=== PATIENT | female | born 1985 | race American Indian/Alaskan Native ===

== ENCOUNTER 2017-08-13 07:40 | Emergency (ER) | payer SELFPAY ==
[2017-08-13 08:26] LABS: Bacteria,Urine 1+ /HPF (Negative); Bilirubin,Urine NEG (Negative); Blood,Urine NEG (Negative); Color,Urine Yellow (Yellow); Mucus,Urine FEW /HPF; Protein,Urine <15 mg/dL mg/dL (Negative); Urobilinogen,Urine < 2.0 mg/dL (<2.0)
[2017-08-13 08:30] LABS: HCG Qualitative,Urine Negative (Negative)
[2017-08-13 08:32] LABS: Alanine Aminotransferase 11 units/L (7-56); Albumin 4.4 g/dL (3.9-5); BUN/Creatinine Ratio 9; Blood Urea Nitrogen 7 mg/dL (7-17); Calcium 9.6 mg/dL (8.4-10.2); Hemolysis Index 5
[2017-08-13 08:40] LABS: Basophils % (Auto) 0.3 % (0.0-1.8); Eosinophils % (Auto) 0.2 % (0.0-4.3); Hematocrit 39.4 % (30.3-42.9); Hemoglobin 13.2 gm/dl (10.1-14.3); Lymphocytes # (Auto) 2.2 K/mm3 (1.2-5.4); Lymphocytes % (Auto) 22.5 % (13.4-35.0); Mean Corpuscular HGB Conc 34 % (30-34); Mean Corpuscular Hemoglobin 31 pg (28-32); Mean Corpuscular Volume 93 fl (79-97); Monocytes # (Auto) 0.6 K/mm3 (0.0-0.8); Monocytes % (Auto) 6.6 % (0.0-7.3); Platelet Count 272 K/mm3 (140-440); Red Blood Count 4.22 M/mm3 (3.65-5.03); Red Cell Distribution Width 12.2 % (13.2-15.2)
[2017-08-13] MEDS ORDERED: ZOFRAN IV ONE ×2 (11:27→13:05)
[2017-08-13] MEDS ORDERED: MORPHINE IV ONE (11:27)
[2017-08-13] MEDS ORDERED: NACL ONE (11:31)
[2017-08-13] MEDS ORDERED: DILAUDID IV ONE (13:05)
--- NOTE | 2017-08-13 14:59 | Cat Scan Report ---
FINAL REPORT EXAM: CT ABDOMEN PELVIS W CON HISTORY: right lower quadrant pain, with nausea TECHNIQUE: CT abdomen and pelvis performed. Images extend from diaphragm to pubic symphysis. 100 cc Omnipaque 300 IV was administered. Oral contrast was administered. Coronal and sagittal reformatted images were obtained. PRIORS: None. FINDINGS: The visualized aspects of the lung bases are clear. The visualized liver, spleen, pancreas, adrenal glands and kidneys demonstrate no significant abnormalities. There is no abdominal aortic aneurysm. There is no evidence of intestinal obstruction. The appendix is normal. There is no free intraperitoneal air. There is a right adnexal cystic mass measuring 7.1 x 5.6 by 8.6 cm. There is some free fluid in the right adnexa. There is an enlarged fibroid uterus. Largest fibroid measures about 7 cm. The bladder is unremarkable. IMPRESSION: Normal appendix. Nonspecific right adnexal cystic mass measuring 7.1 x 5.6 x 8.6 cm. There is also a small amount of free fluid in the right adnexa. Enlarged fibroid uterus.
--- NOTE | 2017-08-13 15:27 | Emergency Department Report ---
HPI - General Chief Complaint: Abdominal Pain Time Seen by Provider: 08/13/17 10:55 - HPI HPI: 31-year-old black female presents to ED with periumbilical pain radiated to her suprapubic area tenderness that started for 3 days. Patient was seen at an outside ED given some medicine without relief of her pain. She also stated that she has been having vaginal discharge cream like collar, malodorous, and then she had a new sexual partner a week ago. Since symptoms started mildly after that new sexual encounter. She also complained of nausea, vomiting that helped by Zofran. ED Past Medical Hx - Past Medical History Previous Medical History?: Yes Hx Hypertension: No Additional medical history: Uterine fibroids, Left ovary cyst - Surgical History Past Surgical History?: Yes Additional Surgical History: Umbilical hernia as a infant - Social History Smoking Status: Current Every Day Smoker Substance Use Type: Alcohol ED Review of Systems ROS: Stated complaint: RIGHT FLANK PAIN Other details as noted in HPI Comment: All other systems reviewed and negative Cardiovascular: denies: chest pain, palpitations, dyspnea on exertion, orthopnea Endocrine: denies: excessive sweating, flushing Gastrointestinal: nausea, vomiting Genitourinary: urgency, dysuria, dyspareunia Physical Exam - Physical Exam Vital Signs: Vital Signs 08/13/17 08/13/17 08/13/17 07:44 10:22 12:45 Temperature 97.7 F 98.5 F Pulse Rate 74 62 Respiratory 18 16 16 Rate Blood Pressure 130/84 Blood Pressure 125/52 [Right] O2 Sat by Pulse 100 100 Oximetry Physical Exam: - Physical Exam Physical Exam: - General Limitations: No Limitations General appearance: alert, in no apparent distress, mildly : Malodorous discharge, cervical tenderness. - Head Head exam: Present: atraumatic, normocephalic - Eye Eye exam: Present: normal appearance - ENT ENT exam: Present: mucous membranes moist - Neck Neck exam: Present: normal inspection - Respiratory Respiratory exam: Present: normal lung sounds bilaterally. Absent: respiratory distress - Cardiovascular Cardiovascular Exam: Present: normal rhythm, tachycardia. Absent: systolic murmur, diastolic murmur, rubs, gallop - GI/Abdominal GI/Abdominal exam: Present: soft, normal bowel sounds - Extremities Exam Extremities exam: Present: normal inspection - Back Exam Back exam: Present: normal inspection - Neurological Exam Neurological exam: Present: alert, oriented X3 - Psychiatric Psychiatric exam: normal affect and mood - Skin Skin exam: Present: warm, dry, intact, normal color. Absent: rash ED Course Vital Signs 08/13/17 08/13/17 08/13/17 07:44 10:22 12:45 Temperature 97.7 F 98.5 F Pulse Rate 74 62 Respiratory 18 16 16 Rate Blood Pressure 130/84 Blood Pressure 125/52 [Right] O2 Sat by Pulse 100 100 Oximetry ED Medical Decision Making - Lab Data Result diagrams: 08/13/17 07:55 08/13/17 07:55 Critical care attestation.: If time is entered above; I have spent that time in minutes in the direct care of this critically ill patient, excluding procedure time. ED Disposition Condition: Stable Instructions: Abdominal Pain (ED) Referrals: PRIMARY CARE, [Primary Care Provider] - 3-5 Days
[2017-08-13] MEDS ORDERED: ULTRAM PO ONE (17:12)
[2017-08-13 17:15] VITALS: BP 121/58
--- NOTE | 2017-08-13 17:18 | Ultrasound Report ---
FINAL REPORT EXAM: US PELVIC COMPLETE HISTORY: PAIN, RIGHT ADNEXAL MASS . Multiple soft tissue masses in cystic masses I would identified in the pelvis on recent CT. Right lower quadrant pelvic pain. LMP 07/20/2017 TECHNIQUE: Ultrasound of the pelvis using transabdominal imaging. Patient refused transvaginal imaging. PRIORS: CT a/P 08/13/2017 FINDINGS: Uterus: Uterus is enlarged in size and heterogeneous in echogenicity. The uterus measures 10.8 x 3.9 x 5.2 cm in size. Numerous enlarged distinct fibroids are present as follows: 1. Exophytic heterogeneous fibroid off the superior fundus of the uterus measuring 7.2 x 6.6 x 7.4 cm. This extends to the left of midline on CT. 2. Large exophytic fibroid extending off the right side of the uterine fundus measuring 4.6 x 4.7 x 5.2 cm. This corresponds to the large heterogeneous exophytic focus seen on CT in the same region. 3. Two small adjacent hypoechoic fibroids are present along the anterior midbody of the uterus. The more cranial focus measures 1.4 x 1.5 x 1.6 cm. The 2nd is 1.6 x 1.3 x 1.5 cm. Underlying fibroids in these region are also confirmed on CT Endometrial stripe: Normal and uniform in thickness measuring 7.3 mm. Ovaries: Both ovaries appear enlarged in size and echogenicity with normal blood flow bilaterally. The right ovary measures 9.7 x 6.2 x 9.2 cm and the left ovary measures 3.7 x 2.8 x 4.4 cm in size. On the right, there is a large cystic mass in the right ovary measuring 7.5 x 5.8 x 8.7 cm cm. This appears fairly anechoic with a thin outer wall and posterior acoustic enhancement. However, there are 2 or 3 echogenic nonvascular nodules along the posterior wall measuring up to 9 mm (image 30). MRI is warranted. There is a smaller adjacent anechoic cyst measuring 1.3 cm. On the left, there is a 1.9 cm complex cyst in the left ovary. This contains internal septations and debris but a thin outer wall and no evidence for internal vascularity. Other: There is no evidence for free fluid in the cul-de-sac seen. IMPRESSION: 1. Enlarged uterus containing multiple fibroids. These correlate with CT findings. 2. Large cystic mass in the right ovary which has a few echogenic nonvascular foci along the inner wall. MRI is warranted. 3. Mildly complex cyst in the left ovary which can also be evaluated further on MRI.
== END 2017-08-13 18:23 | disposition home or self-care (01) ==
LOC: ED 07:40
DX: R10.30 Lower abdominal pain, unspecified (principal); N89.8 Other specified noninflammatory disorders of vagina; F17.200 Nicotine dependence, unspecified, uncomplicated
CPT/HCPCS: 36415; 74177; 76856; 80053; 81001; 81025; 83690; 85025; 96374; 96375; 96376; 99284; J1170; J2270; J2405; Q9967